=== PATIENT | female | born 1950 | race Caucasian/White ===

== ENCOUNTER 2017-09-01 13:56 | Emergency (ER) | payer OTHER ==
[~2017-09-01] VITALS: Ht 162.6 cm; Wt 72.6 kg
--- NOTE | ~2017-09-01 | EKG ---
[address] [address] ELECTROCARDIOGRAM REPORT Name: ROSALINDZULEIKA DAVISON Room #: DEP [facility]ed[facility] [id number] Admission: 09/01/17 Attend Phys: Discharge: 09/01/17 Date of : 46 Report #: [id number] THIS REPORT FOR: //name// [facility] ED Test Date: 2017-09-01 Test Time: 14:47:56 Pat Name: ZULEIKA BOYER Department: Room: Gender: F Broadcast Meteorologist: [facility] : 1950 Requested By: Chandana Purdy Order Number: [id number] MD: Herrera Hung Measurements Intervals [place] Rate: 102 P: 72 [place]: 152 QRS: 36 QRSD: 88 T: 59 QT: 383 QTc: 499 Interpretive Statements Sinus tachycardia Borderline prolonged QT interval No previous ECG available for comparison Electronically Signed On 09-02-2017 11:17:24 [employer]GORITHM DEVELOPER by Herrera Hung [email or web address] <ELECTRONICALLY SIGNED> By: Herrera Hung MD, [facility] 09/02/17 1117 1447 1447 Herrera Hung MD, FACC /EPI
[2017-09-01 15:13] LABS: HEMATOCRIT 46.7 % (37.0-47.0); HEMOGLOBIN 15.5 gm/dL (12.0-15.0); MCH 31.8 pg (26.0-34.0); MCHC 33.1 g/dL (28.0-37.0); MCV 96.1 fL (80.0-100.0); PLATELET COUNT 227 thou/uL (150-400); RBC 4.87 mil/uL (4.20-5.00); RDW 13.8 % (10.5-14.5); WBC 9.3 thou/uL (4.0-11.0)
[2017-09-01 15:21] LABS: ANION GAP 12 mmol/L (7-16); BUN 18 mg/dL (7-18); CALCIUM 9.2 mg/dL (8.5-10.1); CHLORIDE 106 mmol/L (98-107); CO2 26 mmol/L (21-32); CREATININE 0.7 mg/dL (0.6-1.0); GLUCOSE 142 mg/dL (74-106); POTASSIUM 4.3 mmol/L (3.5-5.1); SODIUM 144 mmol/L (136-145)
[2017-09-01 15:22] LABS: MANUAL DIFF YES
[2017-09-01 15:30] LABS: TROPONIN-I < 0.04 ng/mL (<0.06)
[2017-09-01 15:39] LABS: ABSOLUTE NEUTROPHILS 8.2 thou/uL (1.4-8.2); TOTAL CELL COUNT 100
[2017-09-01] MEDS ORDERED: LIORESAL 10 MG10 MG PO (16:09)
[2017-09-01] MEDS ORDERED: MEDROLDOSEPACK PO (16:09)
[2017-09-01] MEDS ORDERED: TRAMADOL 50 MG50 MG PO (16:20)
[2017-09-01 16:21] VITALS: BP 139/90
== END 2017-09-01 16:33 | disposition home or self-care (01) ==
LOC: ER 13:56
PROVIDERS: Physician Assistant
DX: G56.02 Carpal tunnel syndrome, left upper limb (principal); R06.02 Shortness of breath; Z90.49 Acquired absence of other specified parts of digestive tract; Z90.710 Acquired absence of both cervix and uterus; Z90.89 Acquired absence of other organs

== ENCOUNTER → 2019-11-05 | Outpatient (CLI) | payer OTHER ==
[~2019-11-05] MED LIST: LIORESAL 10 MG10 MG PO; MEDROLDOSEPACK PO; TRAMADOL 50 MG50 MG PO
== END ==
LOC: CAT 12:41
DX: Z13.6 Encounter for screening for cardiovascular disorders (principal); E78.00 Pure hypercholesterolemia, unspecified; I25.10 Atherosclerotic heart disease of native coronary artery without angina pectoris

== ENCOUNTER → 2019-11-05 | Outpatient (CLI) | payer OTHER | LOC: SJCVC 11:28 | DX: R94.31 Abnormal electrocardiogram [ECG] [EKG] (principal); E78.00 Pure hypercholesterolemia, unspecified; J44.9 Chronic obstructive pulmonary disease, unspecified; K21.9 Gastro-esophageal reflux disease without esophagitis; E03.9 Hypothyroidism, unspecified; M81.0 Age-related osteoporosis without current pathological fracture; Z79.82 Long term (current) use of aspirin; Z72.0 Tobacco use; Z79.899 Other long term (current) drug therapy ==

== ENCOUNTER → 2019-12-31 | Outpatient (CLI) | payer OTHER | LOC: SJCVCIMAG 07:37 | DX: I51.89 Other ill-defined heart diseases (principal); J44.9 Chronic obstructive pulmonary disease, unspecified ==

== ENCOUNTER → 2020-01-07 | Outpatient (CLI) | payer OTHER | LOC: SJCVCIMAG 13:32 | DX: R00.0 Tachycardia, unspecified (principal); R68.89 Other general symptoms and signs; J44.9 Chronic obstructive pulmonary disease, unspecified; R53.83 Other fatigue; E78.00 Pure hypercholesterolemia, unspecified; R93.1 Abnormal findings on diagnostic imaging of heart and coronary circulation; M19.90 Unspecified osteoarthritis, unspecified site; K21.9 Gastro-esophageal reflux disease without esophagitis; E78.5 Hyperlipidemia, unspecified; E03.9 Hypothyroidism, unspecified; M81.0 Age-related osteoporosis without current pathological fracture; E66.9 Obesity, unspecified; F17.210 Nicotine dependence, cigarettes, uncomplicated; Z79.82 Long term (current) use of aspirin; Z79.899 Other long term (current) drug therapy; Z82.49 Family history of ischemic heart disease and other diseases of the circulatory system ==

== ENCOUNTER → 2020-03-11 | Outpatient (CLI) | payer OTHER | LOC: SJCVC 13:06 | DX: R94.31 Abnormal electrocardiogram [ECG] [EKG] (principal); I42.9 Cardiomyopathy, unspecified; I38 Endocarditis, valve unspecified; I10 Essential (primary) hypertension; E78.00 Pure hypercholesterolemia, unspecified; R53.83 Other fatigue; R68.89 Other general symptoms and signs ==

== ENCOUNTER → 2020-03-24 | Outpatient (CLI) | payer OTHER ==
[~2020-03-24] VITALS: Ht 162.6 cm; Wt 72.7 kg
[~2020-03-24] MED LIST changes: +AMBIEN5 MG PO; +ASA81BEC PO; +CELEXA 10 MG TA10 M1 PO; +DERMACINRX5000 UNIT PO; +FLONASE 0.05%50 MCG NASAL; +LEVO-T75 MCG PO; +LIPITOR20 MG PO; +MAGNESIUM250 M1 PO; +TOPROL XL25 MG PO; +VITAMIN B-121000 MC2 PO; +VITAMIN C500 M2 PO
[2020-03-24 07:30] VITALS: BP 138/73
--- NOTE | 2020-03-24 14:17 | NUR ---
GROIN ASSESSED BY THIS NURSE, AFTER ISABEL RN ASKED ME TO RECHECK IT. RIGHT GROIN IS PUFFIER, BUT REMAINS SOFT. EARLY BRUISING NOTED NOW BELOW SITE. JOSE KINGSTON, ALSO ARRIVES TO ASSESS GROIN AND APPLY MANUAL PRESSURE. U/S ORDERED TO R/O PSEUDOANEURYSM. DR EUBANKS AWARE.
--- NOTE | 2020-03-25 10:46 | CATHLAB ---
[facility] [place] [address] INVASIVE PROCEDURE REPORT Name: ZULEIKA BOYER Room #: REG JOVITA JanesKongSaeed#: [id number] Admission: 03/24/20 Attend Phys: Luis Huitron MD, Discharge: Date of : 46 Report #: [id number] THIS REPORT FOR: cc: Charly Gates MD, Thomas P. MD Mancuso, Gerald M. MD [facility] ~ APPROVED REPORT Study performed: 03/24/2020 07:35:37 Patient Details Patient Status: Out-Patient Room #: The patient is a 69 year-old female Event Personnel Luis Huitron Home Care Giver, Kaur Elliott RN RN, Bushra Porter RT(R)() Bennie Smith Sherra RTR Monitor Procedures Performed Art Access - R femoral artery* Negro Access - R femoral vein Right and Left Heart Cath w/or w/o Coronarie [id number] [facility] Aortogram Abdominal Peripheral Angio 417096 Renal Bilateral Peripheral Angiography 5142042 CVRENALBIL 56706 Initial Mod Sed Same Phys/QHP Gr5y 709009 65494 Mod Sed Same Phys/QHP Ea 620128 Hemostasis w/ Mynx Indication Chest pain Procedure Narrative The Right Groin^ was infiltrated with 1% Lidocaine subcutaneous anesthesia. A Right Heart Catheterization was performed with a 7 Fr. [place] catheter and pressure were recorded. Cardiac outputs were obtained by the Thermal Dilution method. A PINNACLE 6FR Sheath #[id number] sheath was inserted into the RFA^. Coronary angiography was performed using coronary diagnostic catheters. The right coronary system was accessed and visualized with a JR4 catheter. The left coronary system was accessed and visualized with a JL4 catheter. The left ventricle was accessed and visualized with a PIGTAIL catheter. Left ventriculogram was performed in 30 degree projection. An aortogram of the abdominal aorta was performed. Closure device was deployed with a 6 Fr MYNXGRIP 6/7F #[id number]. Hemostasis was obtained with manual pressure following sheath removal without any complications. The patient tolerated the procedure well and there [facility] [address] [place] [address] INVASIVE PROCEDURE REPORT Name: ZULEIKA BOYER [facility] [id number] Admission: 03/24/20 Attend Phys: Luis Huitron, Discharge: Date of : 46 Report #: [id number] were no complications associated with the procedure. A hematoma occurred. Intraoperative Conscious Sedation Sedation start time: 815 Case end Time: 934 Fentanyl 100 mcg Versed 1 mg Fluoro Time: 4.37 minutes Dose: DAP 5605.80 cGycm2 598 mGy Contrast Type and Amount: Omnipaque 150 ml Hemodynamics The right atrial mean pressure is 18 mmHg. The right ventricular pressure is 54/11 mmHg. The pulmonary artery pressure is 50/24 mmHg with a mean of 34 mmHg. The mean pulmonary capillary wedge pressure is 25 mmHg. The aortic pressure is 179/79 mmHg with a mean of 120 mmHg. The left ventricular pressure is 149/10 mmHg with a mean of mmHg. The left ventricular end diastolic pressure is 29 mmHg. The cardiac output using thermo method is 5.55 L/min. Conclusion 1. Normal left ventricular size and LV function lower limits of normal EF 50% range #2 abdominal aorta is intact there is no evidence of aneurysm. #3 there was selective injection of the renal arteries there is evidence of some mild fibromuscular disease on the aortogram however not evident on the angiogram. There is mild atherosclerotic plaquing in the proximal segments bilaterally. Not flow-limiting. #4 left main mildly disease giving rise to LAD and circumflex. #5 LAD with mild irregularities use distal disease. Smaller more attenuated vessels distally. #6 circumflex OM nondominant with mild irregularity. #7 dominant right coronary artery with no occlusive disease noted Recommendations and plan continue aggressive risk factor modification. There is no indication for coronary intervention. <ELECTRONICALLY SIGNED> By: Luis Huitron MD, FACC 03/25/20 1044 1044 1044 Luis Huitron MD, FACC /INF
== END | disposition home or self-care (01) ==
LOC: CATH 06:33
DX: R07.9 Chest pain, unspecified (principal); I25.10 Atherosclerotic heart disease of native coronary artery without angina pectoris; I77.3 Arterial fibromuscular dysplasia; I70.0 Atherosclerosis of aorta; E03.9 Hypothyroidism, unspecified; E78.5 Hyperlipidemia, unspecified; I42.9 Cardiomyopathy, unspecified; M19.90 Unspecified osteoarthritis, unspecified site; J44.9 Chronic obstructive pulmonary disease, unspecified; K21.9 Gastro-esophageal reflux disease without esophagitis; E66.09 Other obesity due to excess calories; Z98.890 Other specified postprocedural states; Z79.899 Other long term (current) drug therapy; Z79.82 Long term (current) use of aspirin; Z82.49 Family history of ischemic heart disease and other diseases of the circulatory system; Z90.49 Acquired absence of other specified parts of digestive tract; Z90.710 Acquired absence of both cervix and uterus

== ENCOUNTER → 2020-11-19 | Outpatient (CLI) | payer OTHER | LOC: SJCVC 11:29 | PROVIDERS: ATTEND Internal Medicine Cardiovascular Disease | DX: I42.9 Cardiomyopathy, unspecified (principal); I25.10 Atherosclerotic heart disease of native coronary artery without angina pectoris; I10 Essential (primary) hypertension; E78.00 Pure hypercholesterolemia, unspecified; K21.9 Gastro-esophageal reflux disease without esophagitis; E66.9 Obesity, unspecified; E03.9 Hypothyroidism, unspecified; M81.0 Age-related osteoporosis without current pathological fracture; Z90.49 Acquired absence of other specified parts of digestive tract; Z90.710 Acquired absence of both cervix and uterus; Z79.82 Long term (current) use of aspirin; Z79.899 Other long term (current) drug therapy; Z87.891 Personal history of nicotine dependence; Z82.49 Family history of ischemic heart disease and other diseases of the circulatory system ==

== ENCOUNTER → 2021-07-20 | Outpatient (CLI) | payer OTHER | LOC: SJCVCIMAG 08:53 | PROVIDERS: ATTEND Internal Medicine Cardiovascular Disease | DX: I42.9 Cardiomyopathy, unspecified (principal); I10 Essential (primary) hypertension; E78.00 Pure hypercholesterolemia, unspecified; R53.83 Other fatigue; K21.9 Gastro-esophageal reflux disease without esophagitis; E03.9 Hypothyroidism, unspecified; E66.9 Obesity, unspecified; F41.9 Anxiety disorder, unspecified; Z87.891 Personal history of nicotine dependence; Z79.82 Long term (current) use of aspirin; Z79.899 Other long term (current) drug therapy ==